=== PATIENT | female | born 1965 | race Caucasian/White ===

== ENCOUNTER 2018-02-01 13:05 | Emergency (ER) | payer SELFPAY ==
[~2018-02-01] VITALS: Ht 170.2 cm; Wt 130.2 kg
[2018-02-01 13:21] VITALS: BP 137/112
--- NOTE | 2018-02-01 14:01 | PHYS DOC ---
Past History Past Medical History: Diabetes Adult General Chief Complaint Chief Complaint: MECHANICAL FALL HPI HPI Patient is a 53 year old female who presents with complaining of a fall and pain in her neck and chest wall and left shoulder patient states she lost her balance and fell on a large ball inside of her son room this morning without loss of consciousness. Patient complaining of pain in her neck, anterior chest and upper abdomen, left shoulder as a constant and sharp pain and rated her pain 7/10 and states she didn't take any pain medication at home. Patient denies focal neuro deficit, vomiting, blurred vision. Review of Systems Review of Systems Constitutional: Denies fever or chills [] Eyes: Denies change in visual acuity, redness, or eye pain [] HENT: Denies nasal congestion or sore throat [] Respiratory: Denies cough or shortness of breath [] Cardiovascular: No additional information not addressed in HPI [] GI: Denies abdominal pain, nausea, vomiting, bloody stools or diarrhea [] : Denies dysuria or hematuria [] Musculoskeletal: Reports back pain or joint pain Integument: Denies rash or skin lesions [] Neurologic:Reports headache, denies, focal weakness or sensory changes [] Endocrine: Denies polyuria or polydipsia [] All other systems were reviewed and found to be within normal limits, except as documented in this note. Physical Exam Physical Exam Constitutional: Well nourished, mild distress, non-toxic appearance, morbidly obese. [] HENT: Normocephalic, atraumatic, oropharynx moist, no oral exudates, nose normal. [] Eyes: PERRLA, EOMI, conjunctiva normal, no discharge. [] Neck: Normal range of motion, no tenderness, supple, no stridor. [] Cardiovascular:Heart rate regular rhythm, no murmur [] Lungs & Thorax: Bilateral breath sounds clear to auscultation [] Abdomen: Bowel sounds normal, soft, no tenderness, no masses, no pulsatile masses. [] Skin: Warm, dry, no erythema, no rash. [] Back: No tenderness, no CVA tenderness. [] Extremities: No tenderness, no cyanosis, no clubbing, ROM intact, no edema. [] Neurologic: Alert and oriented X 3, normal motor function, normal sensory function, no focal deficits noted. [] Psychologic: Affect normal, judgement normal, mood normal. [] EKG EKG [] Radiology/Procedures Radiology/Procedures [address] [address] IMAGING REPORT Signed PATIENT: ANTELMO KRUEGER ACCOUNT: [id number] : 1965 LOCATION: ER AGE: 53 SEX: F EXAM STATUS: REG ER ORD. PHYSICIAN: SNEHA COTTER MD REASON: fall PROCEDURE: CHEST PA & LATERAL CHEST PA LATERAL History: Fall, chest and rib pain Comparison: None. Findings: Normal lung volume. No focal consolidation. Normal pulmonary vasculature. No pleural effusion or pneumothorax. The cardiomediastinal silhouette is normal. The great vessels of the thorax are normal. No acute osseous abnormality. CHEST IMPRESSION: No acute cardiopulmonary process. SHOULDER BILAT 2+V (bilateral AP internal and external rotation, transscapular Y INDICATION: Fall, bilateral shoulder pain COMPARISON: None. SHOULDER FINDINGS: No acute fracture or malalignment. Left rotator cuff tendon calcifications. Mild bilateral acromioclavicular joint arthrosis. Bony mineralization is normal for the patient's age. No significant soft tissue abnormality. No radiopaque foreign body. SHOULDER IMPRESSION: No acute shoulder fracture or malalignment. Electronically signed by: Vasu Ackerman MD (02/01/2018 2:20 PM) [facility] DICTATED AND SIGNED BY: VASU ACKERMAN MD DATE: 02/01/18 1410 CC: SNEHA COTTER MD; GINGER HORTON PA ~ [address] [address] IMAGING REPORT Signed PATIENT: ANTELMO KRUEGER ACCOUNT: [id number] : 1965 LOCATION: ER AGE: 53 SEX: F EXAM STATUS: REG ER ORD. PHYSICIAN: SNEHA COTTER MD REASON: fall PROCEDURE: CT HEAD AND CERVICAL SPINE WO CT HEAD AND CERVICAL SPINE WO Date: 02/01/2018 1:38 PM Clinical Indication: FALL TODAY, HEAD AND NECK PAIN Comparison: None. Technique: 5 mm axial tomographic images were obtained of the head without contrast. These were viewed on brain and bone windows. CT imaging of the cervical spine was performed without contrast. Coronal and sagittal reformatted images were performed. HEAD FINDINGS: The brain parenchyma is normal in attenuation. No intra- or extra-axial mass or fluid collection. No acute hemorrhage. The ventricles are normal in size, shape, and morphology. The [place]-white matter junction is normal. The basilar cisterns are patent. The visualized paranasal sinuses are normal. The visualized portions of the orbits and globes are normal. The mastoid air cells are clear. No aggressive osseous lesion or fracture. CERVICAL SPINE FINDINGS: Slight reversal of the normal cervical lordosis. No listhesis.. No acute fracture. No aggressive lytic or blastic osseous lesion. Mild multilevel degenerative changes of visualized spine. More advanced left C2-3 facet arthrosis. No high-grade spinal canal stenosis or neural foraminal narrowing. 0.7 cm hypoattenuating right thyroid lesion. No cervical lymphadenopathy. The visualized aerodigestive tract is unremarkable. The visualized lung apices are clear. IMPRESSION: 1. No acute intracranial process. 2. No acute osseous abnormality of the cervical spine. 3. 0.7 cm hypoattenuating right thyroid lesions likely related to small nodule or cyst. This could be further evaluated with a nonemergent dedicated thyroid ultrasound. PQRS Compliance Statement: One or more of the following individualized dose reduction techniques were utilized for this examination: 1. Automated exposure control 2. Adjustment of the mA and/or kV according to patient size 3. Use of iterative reconstruction technique Electronically signed by: Vasu Ackerman MD (02/01/2018 2:29 PM) [facility] DICTATED AND SIGNED BY: VASU ACKERMAN MD DATE: 02/01/18 4256 CC: SNEHA COTTER MD; GINGER HORTON ~ Course & Med Decision Making Course & Med Decision Making Pertinent Labs and Imaging studies reviewed. (See chart for details) Evaluation of patient in ER showed 52-year-old female patient with complaining of a fall and injury to make an shoulder and chest wall. Patient had morbid obesity without focal neuro deficit or tenderness. CT head and C-spine and x- ray of shoulder and chest was unremarkable. Patient states she took her last pill of Januvia today and had blood sugar of 401 in ER and treated with 10 units of of insulin regular with decrease of blood sugar to 359. Prescription for metformin was given and patient instructed to follow-up with a primary care physician for refill of her medication. Patient didn't want to have prescription for pain medication and states she only able to take Tylenol for her pain. Dragon Disclaimer Dragon Disclaimer This electronic medical record was generated, in whole or in part, using a voice recognition dictation system. Departure Departure: Impression: Primary Impression: Fall at home Additional Impressions: Shoulder pain Neck pain Chest wall pain Hyperglycemia Uncontrolled diabetes mellitus Medication refill Morbid obesity Disposition: HOME, SELF-CARE (at 1501) Condition: IMPROVED Referrals: GINGER HORTON (PCP) Patient Instructions: 1800 Calorie Diet for Diabetes Meal Planning, Contusion, Fall Prevention and Home Safety, Hyperglycemia, Medication Refill, Emergency Department Additional Instructions: Drink plenty of liquids Follow-up with your primary care physician in 2-3ays Return to ER if not getting better Apply ice on the affected area Scripts Metformin Hcl (METFORMIN HCL) 1,000 Mg Tablet 1000 MG PO BID for ANTI-DIABETIC, #60 TAB 0 Refills Prov: SNEHA COTTER MD 02/01/18 Problem Qualifiers SNEHA COTTER MD Feb 01, 2018 14:01
[2018-02-01] MEDS ORDERED: INSULIN REGULAR 100 UNIT/ML 3ML VIAL. SQ ONE (14:20)
[2018-02-01] MEDS ORDERED: ACETAMINOPHEN 500 MG TABLET PO ONE (14:20)
--- NOTE | 2018-02-01 14:23 | RAD ---
CHEST PA LATERAL History: Fall, chest and rib pain Comparison: None. Findings: Normal lung volume. No focal consolidation. Normal pulmonary vasculature. No pleural effusion or pneumothorax. The cardiomediastinal silhouette is normal. The great vessels of the thorax are normal. No acute osseous abnormality. CHEST IMPRESSION: No acute cardiopulmonary process. SHOULDER BILAT 2+V (bilateral AP internal and external rotation, transscapular Y INDICATION: Fall, bilateral shoulder pain COMPARISON: None. SHOULDER FINDINGS: No acute fracture or malalignment. Left rotator cuff tendon calcifications. Mild bilateral acromioclavicular joint arthrosis. Bony mineralization is normal for the patient's age. No significant soft tissue abnormality. No radiopaque foreign body. SHOULDER IMPRESSION: No acute shoulder fracture or malalignment. Electronically signed by: Vasu Ackerman MD (02/01/2018 2:20 PM) [facility]
--- NOTE | 2018-02-01 14:32 | RAD ---
CT HEAD AND CERVICAL SPINE WO Date: 02/01/2018 1:38 PM Clinical Indication: FALL TODAY, HEAD AND NECK PAIN Comparison: None. Technique: 5 mm axial tomographic images were obtained of the head without contrast. These were viewed on brain and bone windows. CT imaging of the cervical spine was performed without contrast. Coronal and sagittal reformatted images were performed. HEAD FINDINGS: The brain parenchyma is normal in attenuation. No intra- or extra-axial mass or fluid collection. No acute hemorrhage. The ventricles are normal in size, shape, and morphology. The [place]-white matter junction is normal. The basilar cisterns are patent. The visualized paranasal sinuses are normal. The visualized portions of the orbits and globes are normal. The mastoid air cells are clear. No aggressive osseous lesion or fracture. CERVICAL SPINE FINDINGS: Slight reversal of the normal cervical lordosis. No listhesis.. No acute fracture. No aggressive lytic or blastic osseous lesion. Mild multilevel degenerative changes of visualized spine. More advanced left C2-3 facet arthrosis. No high-grade spinal canal stenosis or neural foraminal narrowing. 0.7 cm hypoattenuating right thyroid lesion. No cervical lymphadenopathy. The visualized aerodigestive tract is unremarkable. The visualized lung apices are clear. IMPRESSION: 1. No acute intracranial process. 2. No acute osseous abnormality of the cervical spine. 3. 0.7 cm hypoattenuating right thyroid lesions likely related to small nodule or cyst. This could be further evaluated with a nonemergent dedicated thyroid ultrasound. PQRS Compliance Statement: One or more of the following individualized dose reduction techniques were utilized for this examination: 1. Automated exposure control 2. Adjustment of the mA and/or kV according to patient size 3. Use of iterative reconstruction technique Electronically signed by: Vasu Ackerman MD (02/01/2018 2:29 PM) [facility]
[2018-02-01] MEDS ORDERED: METF10007 PO (15:04)
== END 2018-02-01 15:43 | disposition home or self-care (01) ==
LOC: ER 13:05
DX: M54.2 Cervicalgia (principal); R07.89 Other chest pain; M25.512 Pain in left shoulder; E11.65 Type 2 diabetes mellitus with hyperglycemia; E66.01 Morbid (severe) obesity due to excess calories; Z68.42 Body mass index [BMI] 45.0-49.9, adult; Z76.0 Encounter for issue of repeat prescription; Y92.098 Other place in other non-institutional residence as the place of occurrence of the external cause; W19.XXXA Unspecified fall, initial encounter; Y93.89 Activity, other specified; Y99.8 Other external cause status
CPT/HCPCS: 70450; 71046; 72125; 73030; 82947; 96372; 99285; J1815; 99284-25

== ENCOUNTER 2018-06-29 11:32 | Emergency (ER) | payer OTHER ==
[~2018-06-29] VITALS: Ht 170.2 cm; Wt 136.1 kg
[~2018-06-29 11:32] MED LIST: METF10007 PO
[2018-06-29 11:48] VITALS: BP 178/84
[2018-06-29] MEDS ORDERED: HYDR25TA PO (12:21)
[2018-06-29] MEDS ORDERED: BETA15CR3 TP (12:21)
--- NOTE | 2018-06-29 12:21 | PHYS DOC ---
Past History Past Medical History: Diabetes, Heart Disease, Hypertension Past Surgical History: No Surgical History Alcohol Use: None Drug Use: None Adult General Chief Complaint Chief Complaint: [facility] HPI Patient is a 53 year old female who presents with complaining of spider bite. She states for the last 5 days she has had 4 spots of erythema in the back of her right thigh with itching. Patient states one of the spots was disappeared but still she has 3 other spots and complaining of itching all over without rash. Patient denies fever and chills, shortness of breath, throat swelling. Patient states she called her primary care physician office and he recommended to come to emergency room. Review of Systems Review of Systems Constitutional: Denies fever or chills [] Eyes: Denies change in visual acuity, redness, or eye pain [] HENT: Denies nasal congestion or sore throat [] Respiratory: Denies cough or shortness of breath [] Cardiovascular: No additional information not addressed in HPI [] GI: Denies abdominal pain, nausea, vomiting, bloody stools or diarrhea [] : Denies dysuria or hematuria [] Musculoskeletal: Denies back pain or joint pain [] Integument: Reports a skin lesion Neurologic: Denies headache, focal weakness or sensory changes [] Endocrine: Denies polyuria or polydipsia [] All other systems were reviewed and found to be within normal limits, except as documented in this note. Allergies Allergies Allergies Coded Allergies Type Severity Reaction Last Updated Verified Penicillins Allergy Severe 02/01/18 Yes Physical Exam Physical Exam Constitutional: Well developed, well nourished, mild distress, non-toxic appearance. [] HENT: Normocephalic, atraumatic Eyes: PERRLA, EOMI, conjunctiva normal, no discharge. [] Neck: Normal range of motion, no tenderness, supple, no stridor. [] Cardiovascular:Heart rate regular rhythm, no murmur [] Lungs & Thorax: Bilateral breath sounds clear to auscultation [] Skin: Warm, dry, 3 area of 1 x 2 cm erythema in posterior of right thigh without sign of abscess or inflammation Back: No tenderness, no CVA tenderness. [] Extremities: No tenderness, no cyanosis, no clubbing, ROM intact, no edema. [] Neurologic: Alert and oriented X 3, normal motor function, normal sensory function, no focal deficits noted. [] Psychologic: Affect anxious, judgement normal, mood normal. [] Current Patient Data Vital Signs Vital Signs Date Time Temp Pulse Resp B/P (MAP) Pulse Ox O2 Delivery O2 Flow Rate FiO2 06/29/18 11:48 97.8 95 16 96 Room Air EKG EKG [] Radiology/Procedures Radiology/Procedures [] Course & Med Decision Making Course & Med Decision Making Evaluation of patient in ER showed 52-year-old female patient with complaining of pruritic rash in back of right thigh for 5 days. Patient did not have sign of abscess or infection. Plan discharge patient home to diagnose of allergic rash. Dragon Disclaimer Dragon Disclaimer This electronic medical record was generated, in whole or in part, using a voice recognition dictation system. Departure Departure: Impression: Primary Impression: Rash due to allergy Disposition: HOME, SELF-CARE (at 1290) Condition: STABLE Referrals: GINGER HORTON (PCP) Patient Instructions: Rash Additional Instructions: Drink plenty of liquids Follow-up with your primary care physician in 3-5 days Return to ER if not getting better Scripts Betamethasone/Propylene Glyc (BETAMETHASONE DP AUG 0.05% CRM) 15 Gm Cream..g. 1 GM TP BID for itiching, #45 GR Prov: SNEHA COTTER MD 06/29/18 Hydroxyzine Hcl (HYDROXYZINE HCL) 25 Mg Tablet 1 TAB PO TID PRN for ITCHING, #30 TAB Prov: SNEHA COTTER MD 06/29/18 SNEHA COTTER MD Jun 29, 2018 12:21
== END 2018-06-29 12:37 | disposition home or self-care (01) ==
LOC: ER 11:32
DX: T78.49XA Other allergy, initial encounter (principal); R21 Rash and other nonspecific skin eruption; E11.9 Type 2 diabetes mellitus without complications; I11.9 Hypertensive heart disease without heart failure; Z88.0 Allergy status to penicillin; X58.XXXA Exposure to other specified factors, initial encounter
CPT/HCPCS: 99283

== ENCOUNTER 2018-07-01 10:25 | Emergency (ER) | payer OTHER ==
[~2018-07-01] VITALS: Ht 170.2 cm; Wt 136.1 kg
[~2018-07-01 10:25] MED LIST changes: +BETA15CR3 TP; +HYDR25TA PO
[2018-07-01] MEDS ORDERED: IV NORMAL SALINE 1,000ML 1,000 ML IV SCH (10:41)
[2018-07-01] MEDS ORDERED: HYOSCYAMINE 0.125 MG TAB.RAPDIS PO ONE (10:45)
[2018-07-01] MEDS ORDERED: PROCHLORPERAZINE 10 MG/2 ML VIAL. IV ONE (10:45)
--- NOTE | 2018-07-01 10:48 | PHYS DOC ---
Past History Past Medical History: Diabetes, Heart Disease, Hypertension Past Surgical History: No Surgical History Smoking: Non-smoker Alcohol Use: None Drug Use: None Adult General Chief Complaint Chief Complaint: ABDOMINAL PAIN HPI HPI Patient is a 53-year-old female who presents with left upper abdominal pain that has been present intermittently for the past several weeks to months, became much worse this morning after eating several chicken tenders this morning. Symptoms became a little better with a bowel movement and a couple of Tums. No worsening discomfort with exertion. Describes the pain as crampy. Symptoms are moderate to severe in nature.[] Review of Systems Review of Systems Constitutional: Denies fever or chills [] Eyes: Denies change in visual acuity, redness, or eye pain [] HENT: Denies nasal congestion or sore throat [] Respiratory: Denies cough or shortness of breath [] Cardiovascular: No additional information not addressed in HPI [] GI: See history of present illness[] : Denies dysuria or hematuria [] Musculoskeletal: Denies back pain or joint pain [] Integument: Denies rash or skin lesions [] Neurologic: Denies headache, focal weakness or sensory changes [] Endocrine: Denies polyuria or polydipsia [] All other systems were reviewed and found to be within normal limits, except as documented in this note. Allergies Allergies Allergies Coded Allergies Type Severity Reaction Last Updated Verified Penicillins Allergy Severe 02/01/18 Yes Physical Exam Physical Exam Constitutional: Well developed, well nourished, no acute distress, non-toxic appearance. [] HENT: Normocephalic, atraumatic, bilateral external ears normal, oropharynx moist, no oral exudates, nose normal. [] Eyes: PERRLA, EOMI, conjunctiva normal, no discharge. [] Neck: Normal range of motion, no tenderness, supple, no stridor. [] Cardiovascular:Heart rate regular rhythm, no murmur [] Lungs & Thorax: Bilateral breath sounds clear to auscultation [] Abdomen: Bowel sounds normal, soft, no tenderness, no masses, no pulsatile masses. [] Skin: Warm, dry, no erythema, no rash. [] Back: No tenderness, no CVA tenderness. [] Extremities: No tenderness, no cyanosis, no clubbing, ROM intact, no edema. [] Neurologic: Alert and oriented X 3, normal motor function, normal sensory function, no focal deficits noted. [] Psychologic: Affect normal, judgement normal, mood normal. [] EKG EKG EKG shows a sinus rhythm at 87 bpm, left axis, QTC of 463 ms, flipped T waves in leads [address] elevation. Other nonspecific ST-T wave changes. Interpreted by me at 1100[] Radiology/Procedures Radiology/Procedures TECHNIQUE: CT abdomen and pelvis without IV contrast with multiplanar reformats. COMPARISON: None FINDINGS: Limited evaluation of solid abdominal and pelvic organs due to lack of IV contrast. Heart is normal in size. No pericardial or pleural effusion. Clear lung bases. Motion artifact is seen in the abdomen limiting optimal evaluation. Diffuse hepatic steatosis. Spleen is mildly enlarged measuring 15 cm with multiple low attenuating lesions, the largest measuring 6.8 x 5.5 cm. Noncontrast appearance of the pancreas, adrenals and gallbladder are within normal limits. No nephrolithiasis or hydronephrosis. Left para-aortic nodular soft tissue is seen measuring 3.2 x 2.7 cm (series 2 image 52). Scattered mesenteric lymph nodes are seen, the largest in the right lower quadrant measuring 2.0 x 1.5 cm (series 2 image 104). No bowel obstruction. Uterus is present. Urinary bladder demonstrates no radiopaque stones. No perisplenic fluid or inflammatory changes. No pneumoperitoneum. Bilateral pars defects seen at L4 vertebral body with grade 1 anterolisthesis of L4 over L5. No suspicious bony lesion. IMPRESSION: Limited evaluation of solid abdominal and pelvic organs due to lack of IV contrast. 1. Mildly enlarged spleen. Multiple splenic lesions. Differential diagnoses is broad and includes benign entities such as hemangiomas, hamartomas and abscesses or malignant etiologies such as metastasis or lymphoproliferative disease. 2. Retroperitoneal soft tissue nodules most likely an enlarged lymph node concerning for metastasis or from lymphoproliferative disease. TECHNIQUE: CT abdomen and pelvis with IV contrast with multiplanar reformats. COMPARISON: Noncontrast study from the same day earlier FINDINGS: Multiple splenic lesions are redemonstrated. Enlarged retroperitoneal and mesenteric lymph nodes are seen. No other new findings. Liver, gallbladder, pancreas, adrenals and kidneys within normal limits. No free pelvic fluid or ascites. No bowel obstruction. Uterus is present. Urinary bladder within normal limits. IMPRESSION: 1. Multiple splenic lesions. Given lack of inflammatory changes surrounding this lesions abscesses are low on list of differential diagnosis. Differential diagnoses includes Hamartomas, metastasis, hemangiomas or lymphoproliferative disease or primary splenic malignancy. 2. Enlarged Retroperitoneal pelvic and swelling for metastasis or lymphoproliferative disease.[] Course & Med Decision Making Course & Med Decision Making Pertinent Labs and Imaging studies reviewed. (See chart for details) ED course: Patient arrived, was placed in bed, and tolerated exam well. She was transferred to and from CT without contrast without any complications. After the return of the initial CT findings, she was transported again back to CT for study performed with contrast which she again tolerated without any complications. Patient's discomfort significantly improved. Patient has an appointment at 2:00 this afternoon. Given that her pain was improved she was discharged to follow-up with her primary care physician. Medical decision making: There is no evidence of pancreatitis, obstruction, kidney stone, pyelonephritis, or other urgent/emergent surgical pathology at this time. Patient does have abnormalities of the spleen which can be further evaluated as an outpatient by her primary care team which she is seeing directly after this emergency department visit.[] Dragon Disclaimer Dragon Disclaimer This electronic medical record was generated, in whole or in part, using a voice recognition dictation system. Departure Departure: Impression: Primary Impression: Abdominal pain Additional Impression: Nausea and vomiting Disposition: 01 HOME, SELF-CARE Condition: IMPROVED Referrals: GINGER HORTON (PCP) Keep your appointment this afternoon Patient Instructions: Abdominal Pain Additional Instructions: Keep your appointment this afternoon. Your CT scan showed: Multiple splenic lesions. These can be caused by multiple things including Hamartomas, metastasis , hemangiomas or lymphoproliferative disease or primary splenic malignancy. This needs follow-up which can be arranged by your primary care physician. Return to the ER if worsening pain, unable to tolerate liquids, or any other concerns. Scripts Metoclopramide Hcl (REGLAN) 10 Mg Tablet 10 MG PO QID for nausea and vomiting, #30 TAB Prov: SCOTTY FISH DO 07/01/18 Hydrocodone Bit/Acetaminophen (NORCO 5-325 TABLET) 1 Each Tablet 1-2 TAB PO Q4-6HRS for severe pain, #20 TAB Prov: SCOTTY FISH DO 07/01/18 Hyoscyamine Sulfate (LEVSIN) 0.125 Mg Tablet 0.125 MG PO QID for abdominal pain/cramping, #30 TAB Prov: SCOTTY FISH DO 07/01/18 Problem Qualifiers Primary Impression: Abdominal pain Abdominal location: left upper quadrant Qualified Codes: R10.12 - Left upper quadrant pain Additional Impression: Nausea and vomiting Vomiting type: unspecified Vomiting Intractability: non-intractable Qualified Codes: R11.2 - Nausea with vomiting, unspecified SCOTTY FISH DO Jul 01, 2018 10:48
[2018-07-01 10:51] LABS: BASO # 0.1 x10^3/uL (0.0-0.2); BASO % 1 % (0-3); EOS # 0.3 x10^3/uL (0.0-0.7); EOS % 2 % (0-3); HEMATOCRIT 40.1 % (36.0-47.0); HEMOGLOBIN 13.3 g/dL (12.0-15.5); LYMPH # 1.6 x10^3/uL (1.0-4.8); LYMPH % 14 % (24-48); MEAN CORPUSCULAR HEMOGLOBIN 29 pg (25-35); MEAN CORPUSCULAR HGB CONC 33 g/dL (31-37); MEAN CORPUSCULAR VOLUME 87 fL (79-100); MONO # 1.1 x10^3/uL (0.0-1.1); MONO % 10 % (0-9); NEUT # 8.1 x10^3uL (1.8-7.7); NEUT % 72 % (31-73); PLATELET COUNT 350 x10^3/uL (140-400); RED BLOOD COUNT 4.63 x10^6/uL (3.50-5.40); RED CELL DISTRIBUTION WIDTH 13.7 % (11.5-14.5); WHITE BLOOD COUNT 11.1 x10^3/uL (4.0-11.0)
[2018-07-01 11:02] LABS: ALBUMIN 3.1 g/dL (3.4-5.0); ALBUMIN/GLOBULIN RATIO 0.7 (1.0-1.7); CALCIUM 9.5 mg/dL (8.5-10.1); CREATININE 0.9 mg/dL (0.6-1.0); GFR 65.5; POTASSIUM 4.3 mmol/L (3.5-5.1); TOTAL BILIRUBIN 0.3 mg/dL (0.2-1.0); TOTAL PROTEIN 7.5 g/dL (6.4-8.2)
[2018-07-01 11:34] LABS: BACTERIA,URINE FEW /HPF (0-FEW); BILIRUBIN,URINE NEG (NEG); CLARITY,URINE HAZY; COLOR,URINE YELLOW; GLUCOSE,URINE >=1000 mg/dL (NEG); NITRITE,URINE NEG (NEG); RBC,URINE 0 /HPF (0-2); SQUAMOUS EPITHELIAL CELL,UR FEW /LPF; UROBILINOGEN,URINE 0.2 mg/dL (0.2 mg/dL); WBC,URINE 0 /HPF (0-4)
--- NOTE | 2018-07-01 11:56 | RAD ---
PQRS Compliance statement: One or more of the following individualized dose reduction techniques were utilized for this examination: 1. Automated exposure control. 2. Adjustment of the mA and/or kV according to patient size. 3. Use of iterative reconstruction technique. Indication:Severe left sided abdomen pain with nausea and vomiting TECHNIQUE: CT abdomen and pelvis without IV contrast with multiplanar reformats. COMPARISON: None FINDINGS: Limited evaluation of solid abdominal and pelvic organs due to lack of IV contrast. Heart is normal in size. No pericardial or pleural effusion. Clear lung bases. Motion artifact is seen in the abdomen limiting optimal evaluation. Diffuse hepatic steatosis. Spleen is mildly enlarged measuring 15 cm with multiple low attenuating lesions, the largest measuring 6.8 x 5.5 cm. Noncontrast appearance of the pancreas, adrenals and gallbladder are within normal limits. No nephrolithiasis or hydronephrosis. Left para-aortic nodular soft tissue is seen measuring 3.2 x 2.7 cm (series 2 image 52). Scattered mesenteric lymph nodes are seen, the largest in the right lower quadrant measuring 2.0 x 1.5 cm (series 2 image 104). No bowel obstruction. Uterus is present. Urinary bladder demonstrates no radiopaque stones. No perisplenic fluid or inflammatory changes. No pneumoperitoneum. Bilateral pars defects seen at L4 vertebral body with grade 1 anterolisthesis of L4 over L5. No suspicious bony lesion. IMPRESSION: Limited evaluation of solid abdominal and pelvic organs due to lack of IV contrast. 1. Mildly enlarged spleen. Multiple splenic lesions. Differential diagnoses is broad and includes benign entities such as hemangiomas, hamartomas and abscesses or malignant etiologies such as metastasis or lymphoproliferative disease. 2. Retroperitoneal soft tissue nodules most likely an enlarged lymph node concerning for metastasis or from lymphoproliferative disease. Electronically signed by: Robb Guadarrama DO (07/01/2018 11:53 AM) [facility]
[2018-07-01] MEDS ORDERED: IOHEXOL 300 MG/ML 75 ML VIAL. IV ONE (12:30)
[2018-07-01] MEDS ORDERED: diphenhydrAMINE 50 MG/ML VIAL IVP ONE (13:00)
--- NOTE | 2018-07-01 13:12 | RAD ---
PQRS Compliance statement: One or more of the following individualized dose reduction techniques were utilized for this examination: 1. Automated exposure control. 2. Adjustment of the mA and/or kV according to patient size. 3. Use of iterative reconstruction technique. Indication:Abnormal CT. Enlargement of spleen with multiple lesions. Enlarged lymph nodes
TECHNIQUE: CT abdomen and pelvis with IV contrast with multiplanar reformats. COMPARISON: Noncontrast study from the same day earlier FINDINGS: Multiple splenic lesions are redemonstrated. Enlarged retroperitoneal and mesenteric lymph nodes are seen. No other new findings. Liver, gallbladder, pancreas, adrenals and kidneys within normal limits. No free pelvic fluid or ascites. No bowel obstruction. Uterus is present. Urinary bladder within normal limits. IMPRESSION: 1. Multiple splenic lesions. Given lack of inflammatory changes surrounding this lesions abscesses are low on list of differential diagnosis. Differential diagnoses includes Hamartomas, metastasis, hemangiomas or lymphoproliferative disease or primary splenic malignancy. 2. Enlarged Retroperitoneal pelvic and swelling for metastasis or lymphoproliferative disease. Electronically signed by: Robb Guadarrama DO (07/01/2018 1:09 PM) [facility]
[2018-07-01] MEDS ORDERED: HYDR-3165 PO (13:24)
[2018-07-01] MEDS ORDERED: HYOS0.1264 PO (13:24)
[2018-07-01] MEDS ORDERED: METO10TA81 PO (13:24)
[2018-07-01 13:30] VITALS: BP 153/88
--- NOTE | 2018-07-01 17:56 | EKG ---
[address] [address] Test Date: 2018-07-01 Test Time: 10:58:16 Pat Name: ANTELMO KRUEGER Department: Room: Gender: F Slurry Mixer: : 1965 Requested By: SCOTTY FISH Order Number: [id number] Reading MD: Vladimir Dennis MD Measurements Intervals [place] Rate: 87 P: 44 OR: 142 QRS: -24 QRSD: 92 T: -5 QT: 384 QTc: 463 Interpretive Statements SINUS RHYTHM LAD NON-SPECIFIC ST/T CHANGES Electronically Signed On 07-03-2018 16:25:46 CDT by Vladimir Dennis MD
== END 2018-07-01 13:45 | disposition home or self-care (01) ==
LOC: ER 10:25
DX: R10.12 Left upper quadrant pain (principal); R11.2 Nausea with vomiting, unspecified; R16.1 Splenomegaly, not elsewhere classified; E11.9 Type 2 diabetes mellitus without complications; I11.9 Hypertensive heart disease without heart failure; Z88.0 Allergy status to penicillin
CPT/HCPCS: 36415; 74176; 74177; 80053; 81001; 81025; 83690; 84484; 85025; 85610; 93005; 96361; 96374; 96375; 99284; J0780; J1200; Q9967; J7030

== ENCOUNTER 2021-02-20 16:19 | Emergency (ER) | payer OTHER ==
[~2021-02-20] VITALS: Ht 165.1 cm; Wt 121.3 kg
[~2021-02-20 16:19] MED LIST changes: -BETA15CR3 TP; +BETA15CR6 TP; +HYDR-3165 PO; +HYOS0.1264 PO; +METO10TA81 PO
--- NOTE | 2021-02-20 16:40 | PHYS DOC ---
Past History Past Medical History: Diabetes, Hypertension, Other (NIMA MARY DO) Past Surgical History: , Other (NIMA MARY DO) Smoking: Non-smoker Alcohol Use: None Drug Use: None (NIMA MARY DO) General Adult EDM: Chief Complaint: NAUSEA/VOMITING/DIARRHEA HPI: HPI: 56-year-old female presents from her primary care physician office with fatigue, tachycardia, elevated blood sugar. Patient tells me she has been feeling weak and not normal for the last 4 weeks. She is on oral medication as well as insulin for her diabetes. Her blood sugars have been high. She has been having vomiting and unable to keep down her medications. Patient was also diagnosed with a urinary tract infection. A few days ago and is still supposed be on medication but that comes back up when she vomits. She denies chest pain or shortness of breath. She had a fever a few days ago but is unsure about today. (NIMA MARY DO) Review of Systems: Review of Systems: Constitutional: Fever Eyes: Denies change in visual acuity HENT: Denies nasal congestion or sore throat Respiratory: Denies cough or shortness of breath Cardiovascular: Denies chest pain or edema GI: Generalized abdominal pain, nausea, vomiting. : Urinary frequency Musculoskeletal: Denies back pain or joint pain Integument: Denies rash Neurologic: Denies headache, focal weakness or sensory changes Endocrine: Denies polyuria or polydipsia Lymphatic: Denies swollen glands Psychiatric: Denies depression or anxiety (NIMA MARY DO) Allergies: Allergies: Allergies Coded Allergies Type Severity Reaction Last Updated Verified Penicillins Allergy Severe 02/01/18 Yes cephalexin Allergy Unknown 07/01/18 Yes epinephrine Allergy Unknown 07/01/18 Yes latex Allergy Unknown 07/01/18 Yes miconazole Allergy Unknown 07/01/18 Yes pioglitazone Allergy Unknown 07/01/18 Yes pseudoephedrine Allergy Unknown 07/01/18 Yes skin cleanser combination no.17 Allergy Unknown 07/01/18 Yes (NIMA MARY DO) Physical Exam: PE: Constitutional: Well developed, well nourished, morbidly obese, no acute distress, non-toxic appearance. [] HENT: Normocephalic, atraumatic, bilateral external ears normal, oropharynx moist, no oral exudates, nose normal. [] Eyes: PERRLA, EOMI, conjunctiva normal, no discharge. [] Neck: Normal range of motion, no tenderness, supple, no stridor. [] Cardiovascular: Heart rate 112, regular rhythm, no murmur [] Lungs & Thorax: Bilateral breath sounds clear to auscultation [] Abdomen: Bowel sounds normal, soft, no tenderness, no masses, no pulsatile masses. [] Skin: Warm, dry, no erythema, no rash. [] Back: No tenderness, no CVA tenderness. [] Extremities: No tenderness, no cyanosis, no clubbing, ROM intact, no edema. [] Neurologic: Alert and oriented X 3, normal motor function, normal sensory function, no focal deficits noted. [] Psychologic: Affect normal, judgement normal, mood anxious. [] (NIMA MARY DO) Current Patient Data: Labs: Laboratory Tests Test 02/20/21 16:31 Glucose (Fingerstick) 390 mg/dL (70-99) H (NIMA MARY DO) Labs: Laboratory Tests Test 02/20/21 16:31 02/20/21 16:57 02/20/21 17:06 02/20/21 17:36 Glucose (Fingerstick) 390 mg/dL Sodium Level 128 mmol/L Potassium Level 5.3 mmol/L Chloride Level 95 mmol/L Carbon Dioxide Level 17 mmol/L Anion Gap 16 Blood Urea Nitrogen 129 mg/dL Creatinine 4.4 mg/dL Estimated GFR (Cockcroft-Gault) 10.4 BUN/Creatinine Ratio 29 Glucose Level 418 mg/dL Calcium Level 9.5 mg/dL Total Bilirubin 0.4 mg/dL Aspartate Amino Transf (AST/SGOT) 24 U/L Alanine Aminotransferase (ALT/SGPT) 24 U/L Alkaline Phosphatase 260 U/L Troponin I High Sensitivity 4 ng/L Total Protein 6.9 g/dL Albumin 2.2 g/dL Albumin/Globulin Ratio 0.5 Urine Collection Type Unknown Urine Color Yellow Urine Clarity Turbid Urine pH 5.0 Urine Specific [place] 1.025 Urine Protein 100 mg/dl Urine Glucose (UA) Neg mg/dL Urine Ketones (Stick) Trace mg/dL Urine Blood Mod Urine Nitrite Pos Urine Bilirubin Neg Urine Urobilinogen Dipstick 0.2 mg/dL Urine Leukocyte Esterase Large Urine RBC 1-2 /HPF Urine WBC Tntc /HPF Urine Squamous Epithelial Cells Few /LPF Urine Bacteria Mod /HPF White Blood Count 13.0 x10^3/uL Red Blood Count 3.31 x10^6/uL Hemoglobin 9.5 g/dL Hematocrit 31.2 % Mean Corpuscular Volume 94 fL Mean Corpuscular Hemoglobin 29 pg Mean Corpuscular Hemoglobin Concent 31 g/dL Red Cell Distribution Width 16.1 % Platelet Count 227 x10^3/uL Neutrophils (%) (Auto) 93 % Lymphocytes (%) (Auto) 2 % Monocytes (%) (Auto) 4 % Eosinophils (%) (Auto) 1 % Basophils (%) (Auto) 0 % Neutrophils # (Auto) 12.0 x10^3uL Lymphocytes # (Auto) 0.3 x10^3/uL Monocytes # (Auto) 0.5 x10^3/uL Eosinophils # (Auto) 0.1 x10^3/uL Basophils # (Auto) 0.1 x10^3/uL Segmented Neutrophils % 84 % Band Neutrophils % 5 % Lymphocytes % 1 % Monocytes % 8 % Eosinophils % 1 % Metamyelocytes % 1 % Platelet Estimate Adequate Test 02/20/21 17:46 02/20/21 18:21 02/20/21 18:48 Glucose (Fingerstick) 352 mg/dL SARS-CoV-2 Antigen (Rapid) Negative Lactic Acid Level 1.5 mmol/L Current Medications Medications (Trade) Dose Ordered Sig/[place] Route PRN Reason Start Time Stop Time Status Last Admin Dose Admin Sodium Chloride 1,000 ml @ 1,000 mls/hr 1X ONCE IV 02/20/21 16:45 02/20/21 17:44 DC 02/20/21 16:58 Insulin Human Regular (HumuLIN R VIAL) 10 unit 1X ONCE IV 02/20/21 17:00 02/20/21 17:01 DC 02/20/21 17:02 Insulin Human Regular (HumuLIN R VIAL) 10 unit 1X ONCE IV 02/20/21 18:15 02/20/21 18:16 DC 02/20/21 18:17 Sodium Chloride 1,000 ml @ 1,000 mls/hr 1X ONCE IV 02/20/21 18:30 02/20/21 19:29 DC 02/20/21 18:30 Ceftriaxone Sodium 2 gm/ Sodium Chloride 100 ml @ 200 mls/hr 1X ONCE IV 02/20/21 18:30 02/20/21 18:59 DC 02/20/21 19:20 Ceftriaxone Sodium (Rocephin) 2 gm STK-MED ONCE IV 02/20/21 19:14 02/20/21 19:15 DC Sodium Chloride 100 ml @ As Directed STK-MED ONCE .ROUTE 02/20/21 19:15 02/20/21 19:15 DC Sodium Chloride 1,000 ml @ 1,000 mls/hr 1X ONCE IV 02/20/21 20:15 02/20/21 21:14 DC Vital Signs: Vital Signs Date Time Temp Pulse Resp B/P (MAP) Pulse Ox O2 Delivery O2 Flow Rate FiO2 02/20/21 16:28 98.9 114 23 107/72 (84) 99 Room Air Vital Signs Date Time Temp Pulse Resp B/P (MAP) Pulse Ox O2 Delivery O2 Flow Rate FiO2 02/20/21 17:30 109 21 146/65 (92) 98 Room Air 02/20/21 16:28 98.9 (OG VELEZ DO) EKG: EKG: [] (NIMA MARY DO) Radiology/Procedures: Radiology/Procedures: [] (NIMA MARY DO) Radiology/Procedures: CT scan abdomen and pelvis without contrast 02/20/2021 CLINICAL HISTORY: Hematuria. TECHNIQUE: Unenhanced, contiguous, 3 mm axial sections were obtained through the abdomen and pelvis. One or more of the following individualized dose reduction techniques were utilized for this study: 1. Automated exposure control. 2. Adjustment of the mA and/or kV according to patient size. 3. Use of iterative reconstruction technique. FINDINGS: Comparison study is dated 07/01/2018. Images through the lung bases demonstrate small calcified granuloma involving the right lower lobe. The liver is mildly enlarged measuring 20 cm in length. Decreased attenuation of the liver parenchyma is seen consistent with fatty infiltration. Partially calcified low-attenuation mass lesions are seen scattered throughout the spleen which measure 1 to 4.9 cm in size. These appear to have decreased in size and number since the previous examination. The adrenal glands, pancreas and right kidney are within normal limits. The left kidney is enlarged. Mild to moderate dilatation of the left intrarenal collecting system is seen. The left renal pelvis is dilated. Increased soft tissue density is seen which appears to be encasing the proximal left ureter at the level left UVJ is seen causing obstruction of the left collecting system. Atherosclerotic calcification of the abdominal aorta and its branches is seen. The gallbladder is well-distended. No free fluid or free air is within abdomen. There is no evidence of bowel obstruction. Increased soft tissue density is seen within the retroperitoneum which encases the abdominal aorta particularly to the left of midline. This is partially de stroying the left aspect of the L2 vertebral body. This partially encases the fourth portion the duodenum without causing obstruction and appears to encase the proximal left ureter at the left UVJ. It measures approximately 8.4 x 7.2 x 5.2 cm in craniocaudal, AP and transverse dimensions. The enlarged lymph nodes in this area seen on the previous examination appear to have coalesced into this somewhat poorly defined retroperitoneal mass. Enlarged mesenteric lymph nodes are seen which measure 1 to 2 cm in size. Images through the pelvis demonstrate the urinary bladder to be contracted. Masslike wall thickening is seen involving the anterior aspect of the urinary bladder which measures 4 cm in greatest diameter. Calcifications are seen within the pelvis consistent with phleboliths. No adnexal mass is seen. Prolapse of the pelvic contents is again seen inferiorly. No free fluid is noted. Enlarged pelvic lymph nodes are seen, left greater than right. These measure 5 mm to 1.4 cm in size. No inguinal lymphadenopathy is seen. Very mild S-shaped curvature of the thoracolumbar spine is seen. Degenerative changes are seen involving the lower thoracic and throughout the lumbar spine along with both hips. IMPRESSION: 1. Interval decrease in size and number of the mass lesions scattered throughout the spleen. 2. . A poorly defined soft tissue mass is seen within the retroperitoneum which encases the abdominal aorta, predominantly to the left of midline. This measures 8.4 cm in greatest diameter. It appears to encase the proximal left ureter at the left UV J causing mild to moderate obstruction of the left collecting system and partially encases the distal duodenum without causing obstruction. It is partially destroying the left aspect of the L2 vertebral body. 3. . Mesenteric and pelvic lymphadenopathy are seen as discussed above. 4. 4 cm masslike area of wall thickening is seen involving the anterior aspect of the urinary bladder. A underlying mass lesion (transitional cell carcinoma) is not excluded. Electronically signed by: Richard Panchal MD (02/20/2021 8:34 PM) [id number] (OG VELEZ DO) Heart Score: C/O Chest Pain: N/A Risk Factors: Risk Factors: DM, Current or recent (<one month) smoker, HTN, HLP, family history of CAD, obesity. Risk Scores: Score 0 - 3: 2.5% MACE over next 6 weeks - Discharge Home Score 4 - 6: 20.3% MACE over next 6 weeks - Admit for Clinical Observation Score 7 - 10: 72.7% MACE over next 6 weeks - Early Invasive Strategies (NIMA MARY DO) C/O Chest Pain: No (OG VELEZ DO) Course & Med Decision Making: Course & Med Decision Making Pertinent Labs and Imaging studies reviewed. (See chart for details) The patient's blood sugar on arrival was 390. We will give her a liter of fluid and 10 units of regular insulin by IV. The patient's work-up is still pending. I am signing her out to Dr. Velez at 1800. [] (NIMA MARY DO) Course & Med Decision Making I assumed care of patient after comprehensive signout from off going physician I reviewed entirety of ER work-up and repeated certain aspects of HPI and physical exam Patient with sepsis secondary to UTI. Concerning for obstructive uropathy, likely cancer related in a patient with past medical history of lymphoma treated with chemo/radiation in 2019. She also has splenic masses and retroperitoneal mass wrapping around aorta and involving left L2 3 L IV normal saline, 2 g Rocephin, appropriate pain and antiemetics administered while in ER setting. Patient's vitals improved, hemodynamically stable and overall well-appearing but in obvious need of hospital transfer for further inpatient medical management Attempts were made to transfer patient to [place] [facility] and [facility] systems given the fact that our facility is is not have urology coverage. All at capacity due to current COVID-19 [facility] contacted and case reviewed, patient ultimately accepted for transfer under the care of Dr. Boone Patient updated on entirety of ER findings and need for hospital transfer for continued inpatient medical management. She was amenable. All questions and concerns addressed prior to hospital transfer (OG VELEZ DO) Aretha Disclaimer: Dragon Disclaimer: This electronic medical record was generated, in whole or in part, using a voice recognition dictation system. (NIMA MARY DO) Departure Departure: Impression: Primary Impression: Mass of bladder Additional Impressions: Acute renal failure Sepsis secondary to UTI Obstructive uropathy Disposition: 02 [facility] (research) Admitting Physician: Other (dr boone) (OG VELEZ DO) Condition: STABLE Referrals: GINGER HORTON (PCP) NIMA MARY DO Feb 20, 2021 16:40 OG VELEZ DO Feb 20, 2021 21:36
[2021-02-20] MEDS ORDERED: IV NORMAL SALINE 1,000ML 1,000 ML IV ONE ×3 (16:45→20:15)
[2021-02-20] MEDS ORDERED: INSULIN REGULAR 100 UNIT/ML 3ML VIAL. IV ONE ×2 (17:00→18:15)
--- NOTE | 2021-02-20 17:08 | RAD ---
AP portable chest radiograph 02/20/2021 Clinical History: Tachycardia. An AP erect portable digital radiograph of the chest was obtained. Comparison study is dated 02/01/2018. The cardiac silhouette is normal in size. The thoracic aorta is minimally tortuous. Atherosclerotic c alcification of the thoracic aorta is seen. Subsegmental atelectasis is seen involving the left lower lobe. No area of consolidation is noted. No pneumothorax or pleural effusion is seen. Degenerative c hanges are seen involving the thoracic spine. Impression: Left lower lobe subsegmental atelectasis. No area of consolidation is seen. Electronically signed by: Richard Panchal MD (02/20/2021 5:06 PM) [id number]
--- NOTE | 2021-02-20 17:11 | EKG ---
[address] [address] Test Date: 2021-02-20 Test Time: 16:50:09 Pat Name: ANTELMO KRUEGER Department: Room: Gender: F Summer Nanny: : 1965 Requested By: NIMA MARY Order Number: [id number] Reading MD: Vladimir Dennis MD Measurements Intervals [place] Rate: 108 P: -30 NM: 130 QRS: -24 QRSD: 88 T: -7 QT: 320 QTc: 432 Interpretive Statements SINUS TACHYCARDIA Electronically Signed On 02-25-2021 14:10:09 BIOMASS TECHNICIAN by Vladimir Dennis MD
[2021-02-20 17:30] VITALS: BP 146/65
[2021-02-20 17:34] LABS: CALCIUM 9.5 mg/dL (8.5-10.1); CREATININE 4.4 mg/dL (0.6-1.0); GFR 10.4; POTASSIUM 5.3 mmol/L (3.5-5.1)
[2021-02-20 17:40] LABS: ALBUMIN 2.2 g/dL (3.4-5.0); ALBUMIN/GLOBULIN RATIO 0.5 (1.0-1.7); TOTAL BILIRUBIN 0.4 mg/dL (0.2-1.0); TOTAL PROTEIN 6.9 g/dL (6.4-8.2)
[2021-02-20 17:57] LABS: BASO # 0.1 x10^3/uL (0.0-0.2); BASO % 0 % (0-3); EOS # 0.1 x10^3/uL (0.0-0.7); EOS % 1 % (0-3); HEMATOCRIT 31.2 % (36.0-47.0); HEMOGLOBIN 9.5 g/dL (12.0-15.5); LYMPH # 0.3 x10^3/uL (1.0-4.8); LYMPH % 2 % (24-48); MEAN CORPUSCULAR HEMOGLOBIN 29 pg (25-35); MEAN CORPUSCULAR HGB CONC 31 g/dL (31-37); MEAN CORPUSCULAR VOLUME 94 fL (79-100); MONO # 0.5 x10^3/uL (0.0-1.1); MONO % 4 % (0-9); NEUT % 93 % (31-73); PLATELET COUNT 227 x10^3/uL (140-400); RED BLOOD COUNT 3.31 x10^6/uL (3.50-5.40); RED CELL DISTRIBUTION WIDTH 16.1 % (11.5-14.5)
[2021-02-20 18:14] LABS: BACTERIA,URINE MOD /HPF (0-FEW); BILIRUBIN,URINE NEG (NEG); CLARITY,URINE TURBID; COLOR,URINE YELLOW; GLUCOSE,URINE NEG (NEG); NITRITE,URINE POS (NEG); SQUAMOUS EPITHELIAL CELL,UR FEW /LPF; UROBILINOGEN,URINE 0.2 mg/dL (0.2 mg/dL); WBC,URINE TNTC /HPF (0-4)
[2021-02-20] MEDS ORDERED: IV NORMAL SALINE 100ML 100 ML ONE (19:15)
[2021-02-20 20:05] LABS: % BANDS 5 % (0-9); % EOS 1 % (0-5); % LYMPHS 1 % (24-48); % METAS 1 % (0-0); % MONOS 8 % (0-10); % SEGS 84 % (35-66); PLT ESTIMATE ADEQUATE (ADEQUATE)
--- NOTE | 2021-02-20 20:36 | RAD ---
CT scan abdomen and pelvis without contrast 02/20/2021 CLINICAL HISTORY: Hematuria. TECHNIQUE: Unenhanced, contiguous, 3 mm axial sections were obtained through the abdomen and pelvis. One or more of the following individualized dose reduction techniques were utilized for this study: 1. Automated exposure control. 2. Adjustment of the mA and/or kV according to patient size. 3. Use of iterative reconstruction technique. FINDINGS: Comparison study is dated 07/01/2018. Images through the lung bases demonstrate small calcified granuloma involving the right lower lobe. The liver is mildly enlarged measuring 20 cm in length. Decreased attenuation of the liver parenchyma is seen consistent with fatty infiltration. Partially calcified low-attenuation mass lesions are see n scattered throughout the spleen which measure 1 to 4.9 cm in size. These appear to have decreased i n size and number since the previous examination. The adrenal glands, pancreas and right kidney are w ithin normal limits. The left kidney is enlarged. Mild to moderate dilatation of the left intrarenal collecting system is seen. The left renal pelvis is dilated. Increased soft tissue density is seen which appears to be enc asing the proximal left ureter at the level left UVJ is seen causing obstruction of the left collecti ng system. Atherosclerotic calcification of the abdominal aorta and its branches is seen. The gallbladder is wel l-distended. No free fluid or free air is within abdomen. There is no evidence of bowel obstruction. Increased soft tissue density is seen within the retroperitoneum which encases the abdominal aorta pa rticularly to the left of midline. This is partially destroying the left aspect of the L2 vertebral b bianka. This partially encases the fourth portion the duodenum without causing obstruction and appears t o encase the proximal left ureter at the left UVJ. It measures approximately 8.4 x 7.2 x 5.2 cm in cr aniocaudal, AP and transverse dimensions. The enlarged lymph nodes in this area seen on the previous examination appear to have coalesced into this somewhat poorly defined retroperitoneal mass. Enlarged mesenteric lymph nodes are seen which measure 1 to 2 cm in size. Images through the pelvis demonstrate the urinary bladder to be contracted. Masslike wall thickening is seen involving the anterior aspect of the urinary bladder which measures 4 cm in greatest diameter . Calcifications are seen within the pelvis consistent with phleboliths. No adnexal mass is seen. Pro lapse of the pelvic contents is again seen inferiorly. No free fluid is noted. Enlarged pelvic lymph nodes are seen, left greater than right. These measure 5 mm to 1.4 cm in size. No inguinal lymphadeno christie is seen. Very mild S-shaped curvature of the thoracolumbar spine is seen. Degenerative changes are seen involv ing the lower thoracic and throughout the lumbar spine along with both hips. IMPRESSION: 1. Interval decrease in size and number of the mass lesions scattered throughout the spleen. 2. . A poorly defined soft tissue mass is seen within the retroperitoneum which encases the abdominal aorta, predominantly to the left of midline. This measures 8.4 cm in greatest diameter. It appears t o encase the proximal left ureter at the left UV J causing mild to moderate obstruction of the left c ollecting system and partially encases the distal duodenum without causing obstruction. It is partial ly destroying the left aspect of the L2 vertebral body. 3. . Mesenteric and pelvic lymphadenopathy are seen as discussed above. 4. 4 cm masslike area of wall thickening is seen involving the anterior aspect of the urinary bladder . A underlying mass lesion (transitional cell carcinoma) is not excluded. Electronically signed by: Richard Panchal MD (02/20/2021 8:34 PM) [id number]
[2021-02-20] MEDS ORDERED: ONDANSETRON PF 4 MG/2 ML VIAL. IVP ONE (22:00)
== END 2021-02-20 23:57 | disposition short-term general hospital (02) ==
LOC: ER 16:19
DX: A41.9 Sepsis, unspecified organism (principal); R65.20 Severe sepsis without septic shock; N17.9 Acute kidney failure, unspecified; N39.0 Urinary tract infection, site not specified; N32.89 Other specified disorders of bladder; N13.9 Obstructive and reflux uropathy, unspecified; E11.9 Type 2 diabetes mellitus without complications; I10 Essential (primary) hypertension; Z20.822 Contact with and (suspected) exposure to COVID-19; Z98.890 Other specified postprocedural states; Z88.0 Allergy status to penicillin; Z88.1 Allergy status to other antibiotic agents; Z91.040 Latex allergy status; Z88.8 Allergy status to other drugs, medicaments and biological substances
CPT/HCPCS: 36415; 71045; 74176; 80053; 81001; 82947; 83605; 84484; 85007; 85025; 87040; 87086; 87426; 93005; 96361; 96365; 96375; 96376; 99285; C9803; J0696; J1815; J7030; U0003; 87077; 87186